=== PATIENT | male | born 1965 | race Caucasian/White ===

== ENCOUNTER → 2018-05-30 | Outpatient (CLI) | payer OTHER ==
--- NOTE | 2018-05-31 09:40 | PCVCIMAG ---
APPROVED REPORT Study performed: 05/30/2018 16:21:48 Exam: Stress Echocardiogram Indication: CAD,, Hyperlipidemia Patient Location: Echo lab Stress Nurse: Anastasia Pompa RN Room #: 2 Status: routine Ht: 6 ft 2 in HR: 84 bpm BP: 160/86 mmHg Rhythm: NSR Medical History Medical History: CAD non obstructive,elevated glucose,, Hyperlipidemia Cardiac Risk Factors: FHX of CAD Previous Cardiac Procedures: none Pretest Chest Pain Characteristics: No chest pain Exercise History: Physically active Procedure The patient underwent an Exercise Stress Test using the Abdelrahman Protocol. Blood pressure, heart rate, and EKG were monitored. An Echocardiogram was performed by pathological technician in four stages in quad fashion. At peak stress, four selected images were obtained and placed side by side with resting images for comparison. Stress Test Details Stress Test: Exercise stress testing was performed using a Abdelrahman protocol. HR Resting HR: 84 bpmMax Heart Rate (APMHR): 165 bpm Max HR Achieved: 160 bpmTarget HR (85% APMHR): 140 bpm % of APMHR: 96 Recovery HR: 102 bpm HR response to stress: Normal HR response to stress BP Resting BP: 160/86 mmHg Max BP: 190/84 mmHg Recovery BP: 156/86 mmHg BP response to stress: Normal blood pressure response to stress. ECG Resting ECG: Sinus Rhythm, nonspecific ST-T abnormalities Stress ECG: Sinus Rhythm, nonspecific ST-T abnormalities ST Change: Eqivocally ischemic Maximum ST Deviation: 0.5 mm Arrhythmia: Rare PVC, Occ PAC Recovery ECG: Sinus Rhythm Recovery ST Change: Non-ischemic Recovery ST Deviation: 0 mm Recovery Arrhythmia: Rare PAC Clinical Reason for Termination: Maximal effort Stress Symptoms: Fatigue Exercise duration: 9 min 18 sec Highest Stage Achieved: Stage 4: 4.2 mph at 16% grade. Exercise capacity: 11.0 METs Overall Exercise Capacity for Age: Normal Scale: Active Angina Score: None No complications. Stress ECG Conclusion The patient exercised according to the ABDELRAHMAN protocol for 9:18 mins; achieving a work level of 11.0 METS. The resting heart rate of 84 bpm julio to a maximum heart rate of 160 bpm. This value represent 96% of the maximal, age-predicted heart rate. The resting blood pressure of 160/86 mmHg, julio to a maximum blood pressure of 190/84 mmHg. The exercise test was stopped due to fatigue. Ching Treadmill Score is 6.5 which is Low risk. Pre-Stress Echo The resting Echocardiogram showed normal left ventricular contractility with an estimated Ejection Fraction of about 55-60%. Normal wall motion in all segments on baseline images. Post-Stress Echo The stress Echocardiogram showed normal left ventricular contractility with an estimated Ejection Fraction of about 65-70%. Normal augmentation of wall motion in all segments on post stress images. Clinical No clinical or ECG evidence for ischemia. Conclusion Clinical Response: Non-ischemic Exercise Capacity: Average Stress ECG Response: Equivocal Stress Echo Images: Non-ischemic No clinical or echocardiographic evidence for ischemia. No echocardiographic evidence for exercise induced ischemia. Normal stress echocardiogram with maximal exercise stress. <Conclusion> No clinical or echocardiographic evidence for ischemia. No echocardiographic evidence for exercise induced ischemia. Normal stress echocardiogram with maximal exercise stress.
== END | disposition home or self-care (01) ==
LOC: PCVCIMAG 16:00
PROVIDERS: ATTEND Internal Medicine
DX: I25.10 Atherosclerotic heart disease of native coronary artery without angina pectoris (principal); E78.2 Mixed hyperlipidemia; R93.1 Abnormal findings on diagnostic imaging of heart and coronary circulation; R73.09 Other abnormal glucose; R03.0 Elevated blood-pressure reading, without diagnosis of hypertension
CPT/HCPCS: 93325; 93351